=== PATIENT | male | born 1985 | race Caucasian/White ===

== ENCOUNTER 2021-10-16 17:02 | Emergency (ER) | payer OTHER, MEDICAID, SELFPAY ==
[2021-10-16 17:04] VITALS: BP 169/103; PULSE 81; RESP 14; TEMP 36.8; O2SAT 97; BMI 31.0
[2021-10-16 17:06] VITALS: BMI 31.0
[2021-10-16] MEDS: predniSONE 20 MG Tablet 60 MG PO (17:33)
--- NOTE | 2021-10-16 17:34 | EDS_ITS ---
HPI History of Present Illness Chief Complaint: Neuro S/Sx Detail of Chief Complaint: Greater occipital pain, Navarro's palsy, ear pain and numbness hands Informant: patient Onset/Context/Timing Onset: Weeks (Facial palsy 1 week ago, posterior auricular pain 1 to 2 days ago) Context: Sudden Onset Timing: Continuous (Referring to Navarro's palsy) and Intermittent (Piercing transient pain occiput on the right side) Quality: Shocking Location: Greater occipital nerve distribution Current Severity: Mild Maximum Severity: Severe Worsened by: There is a trigger point Relieved by: Nothing Associated Symptoms Associated Symptoms: No other symptoms Narrative Narrative: Patient is a 36-year-old male who presents with facial palsy that he believes is due to Navarro's palsy. He also complained of ear pain. He has not noted any lesions. He also complains of pain back of his head and there is an area of discomfort that makes the pain worse. He denies headache. Eyes double vision, blurred vision loss of vision. He denies ringing his ears or decreased hearing. Nuys drainage from his ears. Denies rhinorrhea, congestion postnasal drainage. No sore throat. He denies any oral lesions. He denies neck pain or neck stiffness. He denies change in voice. He does complain of intermittent numbness in his right and left hand. He works as a mechanical systems design engineer. He has no other complaints. Prior similar symptoms: Yes (Navarro's palsy in the past otherwise no) Recent Illness/Hospitalization: No PFSH PFSH Medical History Navarro's palsy Smoker Home Medications NK 10/16/21 [History Last Taken Unknown] carbamazepine [Tegretol] 200 mg PO UD #60 tab 10/16/21 [Rx Last Taken Unknown] erythromycin 1 applic RIGHT EYE QHS #3.5 g 10/16/21 [Rx Last Taken Unknown] prednisone 60 mg PO DAILY #15 tablet 10/16/21 [Rx Last Taken Unknown] Allergy/AdvReac Type Severity Reaction Status Date / Time No Known Allergies Allergy Verified 10/16/21 17:04 Social History (Updated 10/16/21 @ 17:[address] Pollo Pearson MD) household members: spouse Smoking Status: Current every day smoker tobacco type: cigarettes substance use type: does not use ROS ROS ED Constitutional Constitutional ED: Denies chills, fever(s), subjective, sweats or weight loss Eyes Eyes: Denies blurry vision, change in vision or diplopia ENT ENT ED: Reports ear pain right (Postauricular in the distribution of the greater occipital nerve) Cardiovascular Cardiovascular: Denies chest pain, palpitations or racing heartbeat Respiratory/Chest Respiratory/Chest: Denies cough, dyspnea, dyspnea on exertion or sputum Gastrointestinal Gastrointestinal: Denies abdominal pain, diarrhea, nausea or vomiting Musculoskeletal Musculoskeletal: Denies arthralgias, back pain, myalgias or neck pain Integumentary Denies rash Neurologic Neurologic: Denies headache(s), paresthesias or weakness Allergic/Immunologic Allergic/Immunologic ED: Denies mouth swelling, tongue swelling or urticaria EXAM Physical Exam Const Vital Signs: 10/16/21 17:04 Temperature 98.2 F Temperature Source Temporal Pulse Rate 81 Respiratory Rate 14 Blood Pressure 169/103 H Blood Pressure Mean 125 Pulse Ox 97 Oxygen Delivery Method Room Air Positive well nourished, well developed and obese General Appearance ED: well developed and NAD; Negative for cyanotic, diaphoretic or pallor Nutritional Appearance: obese HEENT Reports TM's clear HEENT Narrative: There are no lesions in the mouth or ear to raise concern for Ligia James syndrome. Negative for trauma or tenderness Tympanic Membrane ED: Yes TM's clear Eyes PERRL and EOMs intact bilaterally Eyes Narrative: There is no APD. There is no photophobia. General Eye ED: Negative for pale conjunctiva or scleral icterus Neck no lymphadenopathy, supple and no JVD Neck Narrative: There is a trigger point for the greater occipital pain. General: tenderness Resp normal respiratory effort and clear to auscultation bilaterally Cardio regular rate and regular rhythm Extremity normal to inspection Extremity Narrative: Positive Phalen sign bilaterally. Negative Tinel's sign. Median, radial and ulnar function intact. Radial pulses palpable. General Extremety ED: Negative for edema or tenderness General Extremity: Negative for edema Neuro oriented x3, No CN's II-XII intact bilaterally and No no sensory deficits noted Neuro Narrative: Findings consistent with Navarro's palsy. Gait observed and normal. Romberg with eyes open and close negative. Tandem gait normal. The eye askew test was negative. The hint test was negative. This was obtained because states he seems to have problems with balance at night. Sensorium / Orientation: alert Motor Exam: strength 5/5 throughout Psych mental status grossly normal Skin no rashes or lesions noted and no wounds General Skin Exam: Negative for jaundice or pallor MDM MDM MDM Narrative Medical decision making narrative: Patient's exam is consistent with Navarro's palsy and greater occipital neuralgia. He also has findings consistent with carpal tunnel syndrome. He will be treated with prednisone, and cock-up splints for the Navarro's palsy and carpal tunnel respectively. With regards to the occipital neuralgia he was started on Tegretol. Discharge Plan Triage Chief Complaint: Neuro S/Sx ED Provider: Pollo Pearson Dx/Rx/DC Orders Clinical Impression: Navarro's palsy, Occipital neuralgia of right side, Bilateral carpal tunnel syndrome Instructions: ED Navarro's Palsy, ED Carpal Tunnel Syndrome, ED Trigeminal Neuralgia Prescriptions: New prednisone 20 MG tablet 60 mg PO DAILY Qty: 15 RF: 0 carbamazepine [Tegretol] 200 mg tablet 200 mg PO UD Qty: 60 RF: 0 erythromycin 5 mg/gram (0.5 %) ointment 1 applic RIGHT EYE QHS Qty: 3.5 RF: 0 No Action NK RF: 0 Primary Care Provider: Care Physician,No Primary Referrals: Care Physician,No Primary [Primary Care Provider] - Doctor,Your [STAFF PHYSICIAN] - Activity Restrictions/Additional Instructions: 1. After instilling the ophthalmic antibiotic ointment tape your right eyelid shut at bedtime 2. Take medication as directed 3. Wear the cock-up splints at night to treat your carpal tunnel syndrome 4. Follow-up with your doctor. The name of your doctor is located on your insurance card issued to you by [facility] Disposition Disposition: Home, Self Care
[2021-10-16] MEDS: carBAMazepine 200 MG Tablet 100 MG PO (18:24)
[2021-10-16 18:41] VITALS: BP 142/91; PULSE 86; RESP 16; O2SAT 98
== END 2021-10-16 18:43 | disposition home or self-care (01) ==
PROVIDERS: Emergency Provider Emergency Medicine; Visit Provider Emergency Medicine
DX: G51.0 Bell's palsy (principal); M54.81 Occipital neuralgia; H92.09 Otalgia, unspecified ear; F17.210 Nicotine dependence, cigarettes, uncomplicated; G56.03 Carpal tunnel syndrome, bilateral upper limbs
CPT/HCPCS: 99284